=== PATIENT | female | born 1975 | race Caucasian/White ===

== ENCOUNTER 2021-07-28 14:49 | Emergency (ER) | payer OTHER ==
[~2021-07-28] VITALS: Ht 162.6 cm; Wt 78.6 kg
[2021-07-28 14:55] VITALS: BP 171/68
--- NOTE | 2021-07-28 15:41 | RAD ---
Exam Date: 07/28/2021 3:24 PM XR KNEE 4 VIEWS WITH PATELLA_RT Indication: Reason: knee snap/ Excruciating pain with movement / Spl. Instructions: / History: . FINDINGS/ IMPRESSION: Small osteophytes are noted. No acute fracture or dislocation. Alignment and joint spaces are maintained. The soft tissues are w ithin normal limits. Electronically signed by: Geremias Gomez MD (07/28/2021 3:39 PM) [id number]
[2021-07-28] MEDS ORDERED: METH-562 PO (16:22)
--- NOTE | 2021-07-28 16:23 | PHYS DOC ---
Past Medical History Past Surgical History: Cholecystectomy Additional Past Surgical Histo: R knee sx, dontated R kidney, Smoking Status: Current Every Day Smoker Alcohol Use: None General Adult EDM: Chief Complaint: KNEE INJURY HPI: HPI: 46-year-old female past medical history of right meniscus tear with repair, chronic back pain and tobacco use, presents the ED with complaints of left knee pain that started spontaneously just prior to ED arrival. Patient states she was walking outside when she heard a snap in her left knee, complains of left posterior knee pain. States she has been suffering from chronic left knee pain and is pending an MRI with [facility] (saw them yesterday). Is a dialysis nurse. Takes no routine medications. No known history of antibiotics including fluoroquinolones. Is requesting knee immobilizer and crutches. Patient drove here today-declines any sedative medications. Cannot take nsaids-donated 1 kidney. Review of Systems: Review of Systems: Constitutional: Denies fever or chills. [] Eyes: Denies change in visual acuity. [] HENT: Denies nasal congestion or sore throat. [] Respiratory: Denies cough or shortness of breath. [] Cardiovascular: Denies chest pain or edema. [] GI: Denies nausea or vomiting : Denies incontinence or saddle anesthesia Musculoskeletal: Denies back pain or joint deformity Integument: Denies rash or diaphoresis Neurologic: Denies headache, focal weakness or sensory changes. [] Psychiatric: Denies depression or anxiety. [] Heart Score: C/O Chest Pain: No Risk Factors: Risk Factors: DM, Current or recent (<one month) smoker, HTN, HLP, family history of CAD, obesity. Risk Scores: Score 0 - 3: 2.5% MACE over next 6 weeks - Discharge Home Score 4 - 6: 20.3% MACE over next 6 weeks - Admit for Clinical Observation Score 7 - 10: 72.7% MACE over next 6 weeks - Early Invasive Strategies Allergies: Allergies: Allergies Coded Allergies Type Severity Reaction Last Updated Verified NSAIDS (Non-Steroidal Anti-Inflamma Allergy Unknown 07/28/21 Yes Sulfa (Sulfonamide Antibiotics) Allergy Unknown 07/28/21 Yes Physical Exam: PE: Constitutional: Well developed, well nourished, no acute distress, non-toxic appearance. HENT: Normocephalic, atraumatic, Eyes: EOMI, conjunctiva normal, no discharge. Neck: Normal range of motion, supple, Cardiovascular: S1/2 present, regular rhythm, repeat bp in room 135/86 Lungs & Thorax: Speaking in full sentences, bilateral equal chest rise, no tachypnea or increased work of breathing Skin: Warm, dry, no erythema, no rash. [] Extremities: No reproducible tenderness, swelling over the medial compartment of left knee compared to right, equal DP/PT pulses, able to flex and extend knee, could not appreciate any ligamentous instability with Cyndie/reverse Cyndie/varus/valgus testing, no cyanosis, no hip or ankle pain, L5-S1 sensation intact Neurologic: Alert and oriented X 3, normal motor function, normal sensory fun ction, no focal deficits noted. [] Psychologic: Affect normal, judgement normal, mood normal. [] Current Patient Data: Vital Signs: Vital Signs Date Time Temp Pulse Resp B/P (MAP) Pulse Ox O2 Delivery O2 Flow Rate FiO2 07/28/21 14:55 98.4 88 16 171/68 (102) 98 Room Air 98.4 EKG: EKG: [] Radiology/Procedures: Radiology/Procedures: []IMAGING REPORT Signed PATIENT: SAÚL KIMBLECCOUNT: [id number] : 1975 LOCATION: ER AGE: 46 SEX: F EXAM STATUS: PRE ER ORD. PHYSICIAN: OLIVER FUENTES DO REASON: knee snap/ Excruciating pain with movement PROCEDURE: KNEE RIGHT 4V Exam Date: 07/28/2021 3:24 PM XR KNEE 4 VIEWS WITH PATELLA_RT Indication: Reason: knee snap/ Excruciating pain with movement / Spl. Instructions: / History: . FINDINGS/ IMPRESSION: Small osteophytes are noted. No acute fracture or dislocation. Alignment and joint spaces are maintained. The soft tissues are within normal limits. Electronically signed by: Shoaib Gomez MD (07/28/2021 3:39 PM) [id number] DICTATED and SIGNED BY: SHOAIB GOMEZ MD DATE: 07/28/21 [id number] 0 Course & Med Decision Making: Course & Med Decision Making Pertinent Labs and Imaging studies reviewed. (See chart for details) Concern for spontaneous, atraumatic left knee pain, suspect worsening (acute on chronic) ligamentous instability with mild knee swelling. Patient afebrile. Blood pressure improved and is asymptomatic. Crutches and knee immobilizer provided. No increased joint warmth or signs of septic joint. Will prescribe muscle relaxers-instructed against driving or taking other sedatives with this medication. Will discharge home with strict ED return precautions were given for severe pain, repeat injury or neurologic deficits. Encouraged urgent outpatient follow-up with PMD and orthopedic surgery for definitive management. Life-threatening processes were considered but are low suspicion at this time, given history, physical exam and ED workup. Pt was educated on all prescription medications and adverse effects. All patient's questions were answered and pt was stable at time of discharge. Life/limb-threatening differential includes but is not limited to, avascular necrosis, septic arthritis, malignancy, compartment syndrome, fracture/ligamentous injury/overuse, decompression sickness, seronegative spondyloarthropathies, trauma including dislocation/fracture, Lyme disease, lupus, arthritis differentials, gout/pseudogout or decompression sickness. I have spoken with the patient and/or caregivers. I explained the patient's condition, diagnoses and treatment plan based on the information available to me at this time. I have answered the patient and/or caregiver's questions and addressed any concerns. The patient and/or caregivers have a good understanding of patient's diagnosis, condition and treatment plan as can be expected at this point. Vital signs have been stable. Patient's condition is stable and a ppropriate for discharge from the emergency department. Patient will pursue further outpatient evaluation with primary care physician or other designated or consulting physician as outlined in the discharge instructions. The patient and/or caregivers are agreeable to this plan of care and follow-up instructions have been explained in detail. The patient and/or caregivers have received these instructions in written form and have expressed an understanding of the discharge instructions. The patient and/or caregivers are aware that any significant change of condition or worsening of symptoms should prompt immediate return to this or the closest emergency department or call to 911. Avila Disclaimer: Avila Disclaimer: This electronic medical record was generated, in whole or in part, using a voice recognition dictation system. Departure Departure Impression: Primary Impression: Left knee sprain Disposition: HOME / SELF CARE / HOMELESS Condition: STABLE Referrals: ETHAN TREVINO MD Follow-up with your primary care physician in 24 to 48 hours OR FOLLOW UP WITH FAMILY MEDICINE: [address] [place] [address] Patient Instructions: Crutch Use, Knee Sprain, RICE - Routine Care for Injuries Additional Instructions: FOLLOW UP WITH ORTHOPEDICS: FOR DEFINITIVE MANAGEMENT of left knee pain within 7-10 days Orthopaedic Surgery [address] [place] [place] [address] EMERGENCY DEPARTMENT GENERAL DISCHARGE INSTRUCTIONS Thank you for coming to [facility] Emergency Department (ED) today and trusting us with you care. We trust that you had a positive experience in our Emergency Department. If you wish to speak to the department management, you may call the Director at [phone]. YOUR FOLLOW UP INSTRUCTIONS ARE FOLLOWS: 1. Do you have a private Doctor? If you do not have a private doctor, please ask for a resource list of physicians or clinics that may be able to assist you with follow up care. 2. The Emergency Physicain has interpreted your x-rays. The X-Ray specialist will also review them. If there is a change in the findings, you will be notified in 48 hours when at all possible. 3. A lab test or culture has been done, your results will be reviewed and you will be notified if you need a change in treatment. ADDITIONAL INSTRUCTIONS AND INFORMATION: 1. Your care today has been supervised by a physician who is specially trained in emergency care. Many problems require more than one evaluation for a complete diagnosis and treatment. We recommend that you schedule your follow up appointment as recommended to ensure complete treatment of you illness or injury. If you are unable to obtain follow up care and continue to have a problem, or if your condition worsens, we recommend that you return to the ED. 2. We are not able to safely determine your condition over the phone nor are we able to give sound medical advice over the phone. For these safety reasons, if you call for medical advice we will ask you to come to the ED for further evaluation. 3. If you have any questions regarding these discharge instructions please call the ED at [phone]. SAFETY INFORMATION: In the interest of safety, wellness, and injury prevention; we encourage you to wear your sealbelt, if you smoke; quite smoking, and we encourage family to use a protective helmet for bicycling and other sporting events that present an increased risk for head injury. IF YOUR SYMPTOMS WORSEN OR NEW SYMPTOMS DEVELOP, OR YOU HAVE CONCERNS ABOUT YOUR CONDITION; OR IF YOUR CONDITION WORSENS WHILE YOU ARE WAITING FOR YOUR FOLLOW UP APPOINTMENT; EITHER CONTACT YOUR PRIMARY CARE DOCTOR, THE PHYSICIAN WHOSE NAME AND NUMBER YOU WERE GIVEN, OR RETURN TO THE ED IMMEDIATELY. Scripts Methocarbamol (METHOCARBAMOL) 750 Mg Tablet 750 MG PO QID for 5 Days, #20 TAB Prov: OLIVER FUENTES DO 07/28/21 OLIVER FUENTES DO Jul 28, 2021 16:22
== END 2021-07-28 16:38 | disposition home or self-care (01) ==
LOC: ER 14:49
DX: S83.91XA Sprain of unspecified site of right knee, initial encounter (principal); Z72.0 Tobacco use; G89.29 Other chronic pain; Z88.2 Allergy status to sulfonamides; Z88.6 Allergy status to analgesic agent; X50.9XXA Other and unspecified overexertion or strenuous movements or postures, initial encounter; Y92.89 Other specified places as the place of occurrence of the external cause; Y93.01 Activity, walking, marching and hiking; Y99.8 Other external cause status
CPT/HCPCS: 29505; 73564; 99283